=== PATIENT | male | born 1965 | race African-American/Black ===

== ENCOUNTER 2017-08-05 22:29 | Emergency (ER) | payer SELFPAY | END 2017-08-05 23:30 | disposition home or self-care (01) | LOC: ER 22:29 | DX: F16.10 Hallucinogen abuse, uncomplicated (principal); F12.90 Cannabis use, unspecified, uncomplicated | CPT/HCPCS: 99283 ==

== ENCOUNTER 2019-12-01 15:55 | Emergency (ER) | payer SELFPAY ==
[~2019-12-01] VITALS: Ht 188 cm; Wt 87.0 kg
[2019-12-01 16:00] VITALS: BP 150/87
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
== END 2019-12-01 16:48 | disposition home or self-care (01) ==
LOC: ER 15:55
DX: F16.10 Hallucinogen abuse, uncomplicated (principal); F17.200 Nicotine dependence, unspecified, uncomplicated; F10.10 Alcohol abuse, uncomplicated; Z98.890 Other specified postprocedural states
CPT/HCPCS: 99283